=== PATIENT | female | born 2000 | race Caucasian/White ===

== ENCOUNTER 2023-01-12 15:46 | Outpatient (CLI) | payer OTHER, SELFPAY ==
[2023-01-12 23:10] LABS: Clue Cells No Clue Cells Seen (None Seen); Trichomonas No Trichomonas Seen (None Seen); Yeast Yeast Seen (None Seen)
[2023-01-12 23:36] LABS: Chlamydia DNA Amplified* NOT DETECTED (No Detected); GC DNA Amplified* NOT DETECTED (No Detected)
== END 2023-01-12 15:47 | disposition home or self-care (01) ==
PROVIDERS: Visit Provider Nurse Practitioner Family
DX: R30.0 Dysuria (principal); N89.8 Other specified noninflammatory disorders of vagina; R82.90 Unspecified abnormal findings in urine
CPT/HCPCS: 81015; 87086; 87210; 87491; 87591